=== PATIENT | female | born 1935 | race Caucasian/White ===

== ENCOUNTER 2017-03-19 10:31 | Inpatient (IN) | payer MEDICARE ==
[~2017-03-19] VITALS: Ht 172.7 cm; Wt 70.6 kg
[~2017-03-19 10:31] MED LIST: ACET325T14 PO; ALEN70TA5 PO; CALC-666 PO; CHOL400C PO; FAMO20TA7 PO; HYDR25TA6 PO; LORA0.5T PO; MEGE400O PO; METH5TAB12 PO; METO50TA82 PO; MULT1CAP19 PO; POTA10TA11 PO; PRAV40TA2 PO; SENN1TAB7 PO; WARF2TAB7 PO; WARF3TAB7 PO
[2017-03-19] MEDS ORDERED: SODIUM CHLORIDE 0.9% 1,000 ML IV ONE (10:41)
[2017-03-19] MEDS ORDERED: SODIUM CHLORIDE FLUSH 10ML SYR IVF ONE (11:00)
[2017-03-19 11:31] LABS: BLOOD UREA NITROGEN 20 mg/dL (7-18)
[2017-03-19 11:36] LABS: ASPARTATE AMINO TRANSFERASE 10 U/L (15-37)
[2017-03-19 11:45] LABS: PATH.CAST-FLAG NOT PRESENT; SPERM-FLAG NOT PRESENT; SRC-FLAG NOT PRESENT; XTAL-FLAG NOT PRESENT; YLC-FLAG NOT PRESENT
[2017-03-19] MEDS ORDERED: CEFTRIAXONE 1,000 MG in SODIUM CHLORIDE 0.9% 50 ML IVPB ONE (12:30)
[2017-03-19] MEDS ORDERED: AZITHROMYCIN 500 MG in SODIUM CHLORIDE 0.9% 250 ML IVPB ONE (12:30)
[2017-03-19] MEDS ORDERED: CEFTRIAXONE PMX 1GM/50ML 50 ML ONE (12:39)
[2017-03-19] MEDS ORDERED: SODIUM CHLORIDE FLUSH 10ML SYR IVF PRN (13:00)
[2017-03-19] MEDS ORDERED: ARIP30TA PO (13:55)
[2017-03-19] MEDS ORDERED: VENL75CA PO (13:55)
[2017-03-19] MEDS ORDERED: RIVA15TA PO (13:55)
[2017-03-19] MEDS ORDERED: HC/M25OI TD (13:55)
[2017-03-19] MEDS ORDERED: OMEP-110 PO (13:55)
[2017-03-19 14:21] VITALS: BP 107/70
[2017-03-19] MEDS ORDERED: ONDANSETRON 2MG/ML, 2ML IVPush PRN (15:30)
[2017-03-19] MEDS ORDERED: ALBUTEROL SULFATE 2.5 MG/3 ML NPPB PRN (15:30)
[2017-03-19] MEDS ORDERED: DOCUSATE 100 MG CAPSULE PO PRN (15:30)
[2017-03-19] MEDS ORDERED: ACETAMINOPHEN 325 MG TABLET PO PRN (15:30)
[2017-03-19] MEDS ORDERED: GUAIFENESIN/DM 200-20MG, 10ML UDC PO PRN (15:30)
[2017-03-19] MEDS ORDERED: morphine SULFATE 10 MG/ML, 1ML IVPush PRN (15:30)
[2017-03-19] MEDS ORDERED: hydrALAzine 20 MG/ML, 1ML IVPush PRN (15:30)
[2017-03-19] MEDS ORDERED: HYDROcodone/APAP 5/325 TABLET PO PRN (15:30)
[2017-03-19] MEDS: SODIUM CHLORIDE 0.9% 1,000 ML IV SCH (16:00)
[2017-03-19 19:34] VITALS: BP 122/77
[2017-03-19] MEDS: PRAVASTATIN 40 MG TABLET PO SCH (20:59)
[2017-03-19] MEDS: METOPROLOL TARTRATE 50 MG TABLET PO SCH (21:00)
[2017-03-19] MEDS: FAMOTIDINE 20 MG TABLET PO SCH (21:00)
[2017-03-19] MEDS: METHYLPHENIDATE 10 MG TABLET PO SCH (21:00)
[2017-03-20 01:09] VITALS: BP 95/59
[2017-03-20] MEDS: SODIUM CHLORIDE 0.9% 1,000 ML IV SCH (01:27)
[2017-03-20 05:12] LABS: BLOOD UREA NITROGEN 20 mg/dL (7-18)
[2017-03-20 07:20] VITALS: BP 98/58
[2017-03-20] MEDS: SENNA/DOCUSATE TABLET PO SCH (09:00)
[2017-03-20] MEDS: METOPROLOL TARTRATE 50 MG TABLET PO SCH ×2 (09:00→19:50)
[2017-03-20] MEDS: AZITHROMYCIN 500 MG in SODIUM CHLORIDE 0.9% 250 ML IV SCH (09:41)
[2017-03-20] MEDS ORDERED: POTASSIUM CHLORIDE 20 MEQ TAB.ER.PRT PO ONE (10:30)
[2017-03-20] MEDS: OMEPRAZOLE 20 MG CAPSULE.DR PO SCH (10:35)
[2017-03-20] MEDS: POTASSIUM CHLORIDE 20 MEQ TAB.ER.PRT PO SCH (10:35)
[2017-03-20] MEDS: FAMOTIDINE 20 MG TABLET PO SCH ×2 (10:36→19:50)
[2017-03-20] MEDS: MULTIVITAMIN 1 TABLET PO SCH (10:36)
[2017-03-20] MEDS: VENLAFAXINE 75 MG CAP ER PO SCH (10:37)
[2017-03-20] MEDS: CHOLECALCIFEROL 400 UNITS TABLET PO SCH (10:37)
[2017-03-20] MEDS: RIVAROXABAN 15 MG TABLET PO SCH (10:38)
[2017-03-20] MEDS: ARIPIPRAZOLE 15 MG TABLET PO SCH (10:41)
[2017-03-20] MEDS: CEFTRIAXONE PMX 1GM/50ML 50 ML IV SCH (10:56)
[2017-03-20] MEDS: METHYLPHENIDATE 10 MG TABLET PO SCH ×2 (11:14→19:49)
[2017-03-20] MEDS: NEUTRA PHOS K 250 MG TABLET PO SCH ×3 (12:52→19:50)
[2017-03-20 14:00] VITALS: BP 101/67
[2017-03-20] MEDS: HYDROCORTISONE OINT 1%, 28GM TP SCH (19:50)
[2017-03-20] MEDS: PRAVASTATIN 40 MG TABLET PO SCH (19:50)
[2017-03-20 19:51] VITALS: BP 116/76
[2017-03-21 01:34] VITALS: BP 117/73
[2017-03-21 05:34] LABS: BLOOD UREA NITROGEN 15 mg/dL (7-18)
[2017-03-21 07:54] VITALS: BP 144/73
[2017-03-21] MEDS: ARIPIPRAZOLE 15 MG TABLET PO SCH (08:32)
[2017-03-21] MEDS: AZITHROMYCIN 500 MG in SODIUM CHLORIDE 0.9% 250 ML IV SCH (08:32)
[2017-03-21] MEDS: METOPROLOL TARTRATE 50 MG TABLET PO SCH (08:33)
[2017-03-21] MEDS: FAMOTIDINE 20 MG TABLET PO SCH (08:33)
[2017-03-21] MEDS: OMEPRAZOLE 20 MG CAPSULE.DR PO SCH (08:33)
[2017-03-21] MEDS: NEUTRA PHOS K 250 MG TABLET PO SCH (08:33)
[2017-03-21] MEDS: SENNA/DOCUSATE TABLET PO SCH (08:34)
[2017-03-21] MEDS: RIVAROXABAN 15 MG TABLET PO SCH (08:34)
[2017-03-21] MEDS: CHOLECALCIFEROL 400 UNITS TABLET PO SCH (08:34)
[2017-03-21] MEDS: VENLAFAXINE 75 MG CAP ER PO SCH (08:34)
[2017-03-21] MEDS: MULTIVITAMIN 1 TABLET PO SCH (08:35)
[2017-03-21] MEDS: POTASSIUM CHLORIDE 20 MEQ TAB.ER.PRT PO SCH (08:35)
[2017-03-21] MEDS: METHYLPHENIDATE 10 MG TABLET PO SCH (09:00)
[2017-03-21] MEDS: HYDROCORTISONE OINT 1%, 28GM TP SCH (10:11)
[2017-03-21] MEDS: CEFTRIAXONE PMX 1GM/50ML 50 ML IV SCH (10:11)
[2017-03-21] MEDS ORDERED: POTASSIUM PHOSPHATE 44 MEQ in SODIUM CHLORIDE 0.9% 500 ML IV ONE (11:00)
[2017-03-21 11:36] VITALS: BP 122/74
[2017-03-21 12:52] VITALS: BP 112/71
[2017-03-21] MEDS ORDERED: AZIT500T77 PO (13:52)
== END 2017-03-21 16:05 | disposition home health service (06) | DRG 871 ==
LOC: ED 12:32 → EDIP 12:34 → 3NE 14:00
PROVIDERS: ADMIT Internal Medicine; ATTEND Internal Medicine
PROC: 0T9B70Z Drainage of Bladder with Drainage Device, Via Natural or Artificial Opening (ICD-10-PCS; principal; 2017-03-19)
DX: A41.9 Sepsis, unspecified organism (principal); J96.01 Acute respiratory failure with hypoxia; J18.9 Pneumonia, unspecified organism; J18.0 Bronchopneumonia, unspecified organism; D68.69 Other thrombophilia; F03.90 Unspecified dementia, unspecified severity, without behavioral disturbance, psychotic disturbance, mood disturbance, and anxiety; G47.30 Sleep apnea, unspecified; I10 Essential (primary) hypertension; I48.91 Unspecified atrial fibrillation; K21.9 Gastro-esophageal reflux disease without esophagitis; K44.9 Diaphragmatic hernia without obstruction or gangrene; M81.0 Age-related osteoporosis without current pathological fracture; R65.20 Severe sepsis without septic shock; Z66 Do not resuscitate; Z79.01 Long term (current) use of anticoagulants; Z87.01 Personal history of pneumonia (recurrent); Z86.718 Personal history of other venous thrombosis and embolism
CPT/HCPCS: 36415; 71010; 80048; 80053; 81001; 83605; 83735; 83880; 84100; 85025; 85610; 85730; 87040; 93005; 96361; 96365; 97167; J0456; J0696; J7030; J7040; J7050

== ENCOUNTER 2021-06-01 15:05 | Inpatient (IN) | payer MEDICARE ==
[~2021-06-01] VITALS: Ht 172.7 cm; Wt 66.5 kg
[~2021-06-01 15:05] MED LIST changes: -ALEN70TA5 PO; +ALEN70TA77 PO; +ARIP30TA4 PO; +AZIT500T10 PO; -CALC-666 PO; +CALC500T14 PO; +DOXY100T PO; +HC/M25OI TD; +OMEP-110 PO; +RIVA15TA PO; +SENN-177 PO; -SENN1TAB7 PO; +VENL75CA PO; -WARF2TAB7 PO; +WARF2TAB99 PO; +WARF3TAB52 PO; -WARF3TAB7 PO
[2021-06-01] MEDS ORDERED: SODIUM CHLORIDE FLUSH 10ML SYR IVF ONE (15:30)
--- NOTE | 2021-06-01 15:34 | NUR ---
urine cath done and sent to lab
[2021-06-01 15:46] LABS: MICROSCOPIC INDICATED
--- NOTE | 2021-06-01 15:48 | NUR ---
LAB/XRAY IN ROOM
--- NOTE | 2021-06-01 15:54 | NUR ---
BIB EMS FROM [facility] FOR ALTERED MENTAL STATUS PER STAFF OVER THE PAST 2 DAYS. PT IN BED WITH CONT [employer]ISHER, SPO2, BP Q 30 MIN. WENT OVER PLAN OF CARE FROM ORDER LIST, AGREES TO PLAN.
[2021-06-01 15:57] LABS: BASOPHILS % (AUTO) 0 % (0-1); EOSINOPHILS % (AUTO) 0 % (1-7); LYMPHOCYTES % (AUTO) 9 % (22-44); MEAN CORPUSCULAR HEMOGLOBIN 29.6 pg (27.0-34.8); MEAN CORPUSCULAR HGB CONC 32.9 g/dL (32.4-35.8); MEAN PLATELET VOLUME 9.6 fL (7.4-10.4); MONOCYTES % (AUTO) 8 % (2-9); NEUTROPHILS % (AUTO) 84 % (42-75); PLATELET COUNT 204 x10^3/uL (130-400); RED BLOOD COUNT 4.23 x10^6/uL (3.82-5.3); RED CELL DISTRIBUTION WIDTH 14.2 % (9.6-15.2)
[2021-06-01 16:09] LABS: ALANINE AMINOTRANSFERASE 16 U/L (12-78); ALBUMIN 2.7 g/dL (3.4-5.0); ANION GAP 9 mmol/L (5-15); CALCIUM 9.1 mg/dL (8.5-10.1); CHLORIDE 103 mmol/L (98-107); CREATININE 1.26 mg/dL (0.55-1.02)
[2021-06-01 16:11] LABS: ALKALINE PHOSPHATASE 111 U/L (45-117); BILIRUBIN,TOTAL 0.5 mg/dL (0.2-1.0); TOTAL PROTEIN 8.1 g/dL (6.4-8.2)
[2021-06-01] MEDS ORDERED: CEFTRIAXONE 2 GM in DEXTROSE 5% 50 ML IVPB ONE (16:30)
[2021-06-01] MEDS ORDERED: ACET325T26 PO (16:50)
[2021-06-01] MEDS ORDERED: ZINC220T2 PO (16:55)
[2021-06-01] MEDS ORDERED: ASCO100018 PO (16:55)
[2021-06-01] MEDS ORDERED: CHOL10003 PO (16:56)
[2021-06-01] MEDS ORDERED: SODIUM CHLORIDE FLUSH 10ML SYR IVF PRN (17:00)
[2021-06-01] MEDS ORDERED: morphine SULFATE 10 MG/ML, 1ML IVPush PRN (17:30)
[2021-06-01] MEDS ORDERED: hydrALAzine 20 MG/ML, 1ML IVPush PRN (17:30)
[2021-06-01] MEDS ORDERED: ONDANSETRON 2MG/ML, 2ML IVPush PRN (17:30)
[2021-06-01] MEDS ORDERED: TEMAZEPAM 15 MG CAPSULE PO PRN (17:30)
[2021-06-01] MEDS ORDERED: GUAIFENESIN/DM 200-20MG, 10ML UDC PO PRN (17:30)
[2021-06-01] MEDS ORDERED: METHOCARBAMOL 500 MG TABLET PO PRN (17:30)
[2021-06-01] MEDS ORDERED: DOCUSATE 100 MG CAPSULE PO PRN (17:30)
[2021-06-01 17:37] VITALS: BP 155/72
[2021-06-01] MEDS: SODIUM CHLORIDE 0.9% 1,000 ML IV SCH (17:47)
[2021-06-01] MEDS ORDERED: ACETAMINOPHEN 325 MG TABLET PO PRN (18:00)
[2021-06-01 18:55] VITALS: BP 130/69
[2021-06-01] MEDS: ACETAMINOPHEN 500 MG TABLET PO SCH ×2 (19:30→23:10)
[2021-06-01] MEDS: ATORVASTATIN 10 MG TABLET PO SCH (19:37)
[2021-06-01] MEDS: RIVAROXABAN 15 MG TABLET PO SCH (19:37)
[2021-06-01] MEDS: METOPROLOL TARTRATE 50 MG TAB PO SCH (19:37)
[2021-06-01] MEDS ORDERED: [UNRECOGNIZED DRUG - OTHER] TD SCH (21:00)
[2021-06-01] MEDS ORDERED: WHITE PETROLATUM TD SCH (21:00)
[2021-06-01] MEDS ORDERED: HYDROCORTISONE TD SCH (21:00)
[2021-06-01] MEDS ORDERED: MINERAL OIL TD SCH (21:00)
[2021-06-02 00:46] VITALS: BP 96/61
[2021-06-02] MEDS: ACETAMINOPHEN 500 MG TABLET PO SCH (03:30)
[2021-06-02] MEDS: SODIUM CHLORIDE 0.9% 1,000 ML IV SCH ×2 (05:00→05:54)
[2021-06-02 05:37] LABS: BASOPHILS % (AUTO) 0 % (0-1); EOSINOPHILS % (AUTO) 0 % (1-7); LYMPHOCYTES % (AUTO) 11 % (22-44); MEAN CORPUSCULAR HEMOGLOBIN 29.4 pg (27.0-34.8); MEAN CORPUSCULAR HGB CONC 32.7 g/dL (32.4-35.8); MEAN PLATELET VOLUME 10.4 fL (7.4-10.4); MONOCYTES % (AUTO) 10 % (2-9); NEUTROPHILS % (AUTO) 79 % (42-75); PLATELET COUNT 160 x10^3/uL (130-400); RED BLOOD COUNT 3.94 x10^6/uL (3.82-5.3); RED CELL DISTRIBUTION WIDTH 14.3 % (9.6-15.2)
[2021-06-02 05:40] LABS: ANION GAP 7 mmol/L (5-15); CALCIUM 8.1 mg/dL (8.5-10.1); CHLORIDE 108 mmol/L (98-107)
[2021-06-02 05:42] LABS: CREATININE 0.91 mg/dL (0.55-1.02)
[2021-06-02] MEDS ORDERED: ACETAMINOPHEN 500 MG TABLET PO PRN (07:30)
[2021-06-02 07:56] VITALS: BP 131/67
[2021-06-02] MEDS: CHOLECALCIFEROL 1,000 UNIT TABLET PO SCH (07:59)
[2021-06-02] MEDS: ASCORBIC ACID 500 MG TABLET PO SCH (08:00)
[2021-06-02] MEDS: OMEPRAZOLE 20 MG CAPSULE.DR PO SCH (08:00)
[2021-06-02] MEDS: VENLAFAXINE 75 MG CAP ER PO SCH (08:00)
[2021-06-02] MEDS: ARIPIPRAZOLE 15 MG TABLET PO SCH (08:00)
[2021-06-02] MEDS: METOPROLOL TARTRATE 50 MG TAB PO SCH ×2 (08:00→20:46)
[2021-06-02] MEDS: ZINC SULFATE 220 MG CAPSULE PO SCH (08:01)
[2021-06-02 13:32] VITALS: BP 92/53
[2021-06-02] MEDS ORDERED: POTASSIUM PHOSPHATE 44 MEQ in SODIUM CHLORIDE 0.9% 500 ML IV ONE (14:30)
[2021-06-02] MEDS ORDERED: POTASSIUM PHOS 4.4 MEQ/ML IV ONE (14:30)
[2021-06-02] MEDS: CEFTRIAXONE 2 GM in DEXTROSE 5% 50 ML IVPB SCH (15:46)
[2021-06-02] MEDS: RIVAROXABAN 15 MG TABLET PO SCH (17:02)
[2021-06-02 18:42] VITALS: BP 99/61
[2021-06-02] MEDS: ATORVASTATIN 10 MG TABLET PO SCH (20:45)
[2021-06-03 00:23] VITALS: BP 111/71
[2021-06-03 04:56] LABS: BASOPHILS % (AUTO) 0 % (0-1); EOSINOPHILS % (AUTO) 0 % (1-7); LYMPHOCYTES % (AUTO) 18 % (22-44); MEAN CORPUSCULAR HGB CONC 33.3 g/dL (32.4-35.8); MEAN PLATELET VOLUME 10.7 fL (7.4-10.4); MONOCYTES % (AUTO) 12 % (2-9); NEUTROPHILS % (AUTO) 70 % (42-75); PLATELET COUNT 154 x10^3/uL (130-400); RED CELL DISTRIBUTION WIDTH 14.3 % (9.6-15.2)
[2021-06-03 05:05] LABS: CHLORIDE 116 mmol/L (98-107)
[2021-06-03 05:09] LABS: ANION GAP 5 mmol/L (5-15); CALCIUM 7.6 mg/dL (8.5-10.1); CREATININE 0.71 mg/dL (0.55-1.02)
[2021-06-03 07:15] VITALS: BP 114/78
[2021-06-03] MEDS: ZINC SULFATE 220 MG CAPSULE PO SCH (08:42)
[2021-06-03] MEDS: ASCORBIC ACID 500 MG TABLET PO SCH (08:42)
[2021-06-03] MEDS: CHOLECALCIFEROL 1,000 UNIT TABLET PO SCH (08:43)
[2021-06-03] MEDS: VENLAFAXINE 75 MG CAP ER PO SCH (08:43)
[2021-06-03] MEDS: OMEPRAZOLE 20 MG CAPSULE.DR PO SCH (08:43)
[2021-06-03] MEDS: ARIPIPRAZOLE 15 MG TABLET PO SCH (08:43)
[2021-06-03] MEDS: METOPROLOL TARTRATE 50 MG TAB PO SCH ×2 (08:43→20:59)
[2021-06-03 12:23] VITALS: BP 131/71
[2021-06-03] MEDS: CEFTRIAXONE 2 GM in DEXTROSE 5% 50 ML IVPB SCH (15:49)
[2021-06-03] MEDS: SODIUM CHLORIDE 0.9% 1,000 ML IV SCH (15:49)
[2021-06-03] MEDS: RIVAROXABAN 15 MG TABLET PO SCH (16:26)
[2021-06-03 19:15] VITALS: BP 121/75
[2021-06-03] MEDS: ATORVASTATIN 10 MG TABLET PO SCH (20:59)
[2021-06-04 00:57] VITALS: BP 128/68
[2021-06-04] MEDS: SODIUM CHLORIDE 0.9% 1,000 ML IV SCH (04:43)
[2021-06-04 05:39] LABS: CHLORIDE 116 mmol/L (98-107)
[2021-06-04 05:44] LABS: BASOPHILS % (AUTO) 0 % (0-1); EOSINOPHILS % (AUTO) 1 % (1-7); LYMPHOCYTES % (AUTO) 24 % (22-44); MEAN CORPUSCULAR HEMOGLOBIN 30.2 pg (27.0-34.8); MEAN CORPUSCULAR HGB CONC 33.3 g/dL (32.4-35.8); MEAN PLATELET VOLUME 10.9 fL (7.4-10.4); MONOCYTES % (AUTO) 10 % (2-9); NEUTROPHILS % (AUTO) 64 % (42-75); PLATELET COUNT 133 x10^3/uL (130-400); RED BLOOD COUNT 3.88 x10^6/uL (3.82-5.3); RED CELL DISTRIBUTION WIDTH 14.4 % (9.6-15.2)
[2021-06-04 05:45] LABS: ANION GAP 4 mmol/L (5-15); CALCIUM 8.1 mg/dL (8.5-10.1); CREATININE 0.66 mg/dL (0.55-1.02)
[2021-06-04 07:05] VITALS: BP 128/80
[2021-06-04] MEDS: ARIPIPRAZOLE 15 MG TABLET PO SCH (08:01)
[2021-06-04] MEDS: OMEPRAZOLE 20 MG CAPSULE.DR PO SCH (08:01)
[2021-06-04] MEDS: ZINC SULFATE 220 MG CAPSULE PO SCH (08:02)
[2021-06-04] MEDS: METOPROLOL TARTRATE 50 MG TAB PO SCH ×2 (08:02→21:28)
[2021-06-04] MEDS: ASCORBIC ACID 500 MG TABLET PO SCH (08:02)
[2021-06-04] MEDS: VENLAFAXINE 75 MG CAP ER PO SCH (08:02)
[2021-06-04] MEDS: CHOLECALCIFEROL 1,000 UNIT TABLET PO SCH (08:02)
[2021-06-04] MEDS: MEROPENEM 1 GM in SODIUM CHLORIDE 0.9% 100 ML IV SCH ×2 (10:39→18:31)
[2021-06-04 12:32] VITALS: BP 140/83
[2021-06-04] MEDS: RIVAROXABAN 15 MG TABLET PO SCH (17:07)
[2021-06-04 18:52] VITALS: BP 122/76
[2021-06-04] MEDS: ATORVASTATIN 10 MG TABLET PO SCH (21:28)
[2021-06-05 01:11] VITALS: BP 94/60
[2021-06-05] MEDS: MEROPENEM 1 GM in SODIUM CHLORIDE 0.9% 100 ML IV SCH ×3 (02:44→18:33)
[2021-06-05 06:21] VITALS: BP 111/73
[2021-06-05] MEDS: METOPROLOL TARTRATE 50 MG TAB PO SCH ×2 (08:15→20:41)
[2021-06-05] MEDS: VENLAFAXINE 75 MG CAP ER PO SCH (08:15)
[2021-06-05] MEDS: CHOLECALCIFEROL 1,000 UNIT TABLET PO SCH (08:15)
[2021-06-05] MEDS: ARIPIPRAZOLE 15 MG TABLET PO SCH (08:16)
[2021-06-05] MEDS: ASCORBIC ACID 500 MG TABLET PO SCH (08:16)
[2021-06-05 13:48] VITALS: BP 128/76
[2021-06-05] MEDS: RIVAROXABAN 15 MG TABLET PO SCH (16:52)
[2021-06-05] MEDS: NYSTATIN 500,000 UNITS/5 ML UDC PO SCH ×2 (16:53→20:41)
[2021-06-05 18:47] VITALS: BP 105/70
[2021-06-05] MEDS: ATORVASTATIN 10 MG TABLET PO SCH (20:41)
[2021-06-06] VITALS: BP 110/70
[2021-06-06] MEDS: MEROPENEM 1 GM in SODIUM CHLORIDE 0.9% 100 ML IV SCH ×3 (02:20→19:59)
[2021-06-06] MEDS: NYSTATIN 500,000 UNITS/5 ML UDC PO SCH ×4 (05:32→20:00)
[2021-06-06 06:22] VITALS: BP 113/72
[2021-06-06] MEDS: CHOLECALCIFEROL 1,000 UNIT TABLET PO SCH (08:48)
[2021-06-06] MEDS: METOPROLOL TARTRATE 50 MG TAB PO SCH ×2 (08:49→20:08)
[2021-06-06] MEDS: VENLAFAXINE 75 MG CAP ER PO SCH (08:49)
[2021-06-06] MEDS: ARIPIPRAZOLE 15 MG TABLET PO SCH (08:49)
[2021-06-06] MEDS: ASCORBIC ACID 500 MG TABLET PO SCH (08:50)
[2021-06-06 12:17] VITALS: BP 116/72
[2021-06-06] MEDS ORDERED: MERO1VIA24 IV (13:24)
[2021-06-06] MEDS: RIVAROXABAN 15 MG TABLET PO SCH (17:03)
[2021-06-06 19:58] VITALS: BP 94/5
[2021-06-06] MEDS: ATORVASTATIN 10 MG TABLET PO SCH (20:00)
[2021-06-07 00:32] VITALS: BP 97/58
[2021-06-07] MEDS: MEROPENEM 1 GM in SODIUM CHLORIDE 0.9% 100 ML IV SCH ×2 (03:35→11:42)
[2021-06-07 03:49] LABS: HCT (SEDRATE) 31.4 % (34.6-47.8)
[2021-06-07] MEDS: NYSTATIN 500,000 UNITS/5 ML UDC PO SCH ×2 (05:38→11:42)
[2021-06-07 06:35] VITALS: BP 98/65
[2021-06-07] MEDS: ASCORBIC ACID 500 MG TABLET PO SCH (08:18)
[2021-06-07] MEDS: CHOLECALCIFEROL 1,000 UNIT TABLET PO SCH (08:18)
[2021-06-07] MEDS: VENLAFAXINE 75 MG CAP ER PO SCH (08:19)
[2021-06-07] MEDS: METOPROLOL TARTRATE 50 MG TAB PO SCH (08:20)
[2021-06-07] MEDS: ARIPIPRAZOLE 15 MG TABLET PO SCH (08:31)
[2021-06-07 13:01] VITALS: BP 109/57
[2021-06-07] MEDS ORDERED: MEROPENEM 1 GM in SODIUM CHLORIDE 0.9% 100 ML IV SCH (23:00)
== END 2021-06-07 16:50 | DRG 91 ==
LOC: ED 17:13 → EDIP 17:30 → 4NW 17:31
PROVIDERS: ADMIT Internal Medicine; ATTEND Internal Medicine
PROC: 0T9B70Z Drainage of Bladder with Drainage Device, Via Natural or Artificial Opening (ICD-10-PCS; 2021-06-01)
PROC: 02HV33Z Insertion of Infusion Device into Superior Vena Cava, Percutaneous Approach (ICD-10-PCS; principal; 2021-06-06)
PROC: B548ZZA Ultrasonography of Superior Vena Cava, Guidance (ICD-10-PCS; 2021-06-06)
PROC: B5181ZA Fluoroscopy of Superior Vena Cava using Low Osmolar Contrast, Guidance (ICD-10-PCS; 2021-06-06)
DX: G92 Toxic encephalopathy (principal); E43 Unspecified severe protein-calorie malnutrition; N39.0 Urinary tract infection, site not specified; N17.9 Acute kidney failure, unspecified; R78.81 Bacteremia; Z16.12 Extended spectrum beta lactamase (ESBL) resistance; K21.9 Gastro-esophageal reflux disease without esophagitis; B96.89 Other specified bacterial agents as the cause of diseases classified elsewhere; E78.5 Hyperlipidemia, unspecified; F03.90 Unspecified dementia, unspecified severity, without behavioral disturbance, psychotic disturbance, mood disturbance, and anxiety; F32.9 Major depressive disorder, single episode, unspecified; I10 Essential (primary) hypertension; I48.0 Paroxysmal atrial fibrillation; Z79.01 Long term (current) use of anticoagulants; Z79.899 Other long term (current) drug therapy; Z68.22 Body mass index [BMI] 22.0-22.9, adult
CPT/HCPCS: 36415; 36573; 71045; 80048; 80053; 81001; 83605; 83735; 84100; 84145; 85025; 85651; 86140; 87040; 87077; 87086; 87186; 93005; 96374; 99285; G0378; J0696; J2185; C1751; J7030; J7040